=== PATIENT | male | born 1955 ===

== ENCOUNTER 2018-12-07 15:54 | Emergency (ER) | payer MEDICARE, OTHER ==
[2018-12-07 16:23] VITALS: BP 149/81; PULSE 96; RESP 18; TEMP 98.1; O2SAT 99
--- NOTE | 2018-12-07 16:46 | ED PDOC ---
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 Patient reports that just prior to arrival he was trying to help his falling out of a wheelchair when he fell forwards landing on an outstretched left hand. He states he feels as if his thumb came out of its socket and went back in, presenting with bruising, swelling, and decreased ROM. Otherwise, denies medication use, numbness, tingling, and other injury. Right hand dominant. PMD: Eli Elliott Past Medical History Reviewed: Historical Data, Nursing Documentation, Vital Signs Vital Signs: Last Vital Signs Temp 98.1 F 12/07/18 16:20 Pulse 96 H 12/07/18 16:20 Resp 18 12/07/18 16:20 BP 149/81 12/07/18 16:20 Pulse Ox 99 12/07/18 16:20 - Medical History PMH: Diabetes - Surgical History Surgical History: No Surg Hx - Family History Family History: States: Unknown Family Hx - Social History Current smoker - smoking cessation education provided: No Alcohol: None Drugs: Denies - Home Medications Home Medications: Ambulatory Orders Medication Instructions Recorded Ibuprofen [Motrin Tab] 600 mg PO Q6 PRN #20 tab 12/07/18 - Allergies Allergies/Adverse Reactions: Allergies Allergy/AdvReac Type Severity Reaction Status Date / Time No Known Allergies Allergy Verified 12/07/18 16:20 Review of Systems ROS Statement: Except As Marked, All Systems Reviewed And Found Negative Musculoskeletal: Positive for: Hand Pain (left thumb) Neurological: Negative for: Numbness (or tingling) Physical Exam - Reviewed Nursing Documentation Reviewed: Yes Vital Signs Reviewed: Yes - Physical Exam Comments: GENERAL APPEARANCE: Patient is awake, alert, oriented x 3, in no acute distress. SKIN: Warm, dry; (-) cyanosis. CHEST AND RESPIRATORY: (-) chest wall tenderness. Lungs: (-) rales, (-) rhonchi, (-) wheezes; breath sounds equal bilaterally. HEART AND CARDIOVASCULAR: (-) irregularity; (-) murmur, (-) gallop. LEFT UPPER EXTREMITY: capillary refill less than two second. Pulses 2+. (+) diffuse swelling and ecchymosis from 1st metacarpal with mild tenderness to palpation, (+) decreased ROM to left first digit but with flexion and extension intact. Neurovascular intact. Remainder of UE: (-) tenderness, (-) deformity. NEURO AND PSYCH: Mental status as above. - ECG O2 Sat by Pulse Oximetry: 99 (RA) Pulse Ox Interpretation: Normal Medical Decision Making Medical Decision Making: Time: 164 Initial Impression: left hand pain, r/o dislocation and fracture Initial Plan: --Ibuprofen 600mg PO --Left hand XR 1705 XR FINDINGS: LEFT THUMB: There is an acute nondisplaced fracture in the base of the thumb. There is diffuse bone demineralization. Remainder of the left hand (as seen on the AP view) grossly unremarkable. JOINTS: Normal. SOFT TISSUES: There is diffuse soft tissue swelling in the thumb. OTHER FINDINGS: None. IMPRESSION: Acute nondisplaced fracture in the base of the thumb with diffuse soft tissue swelling. 1730 In light of XR findings, patient to be placed in thumb spica splint and follow up with clinic / ortho. Using language line #[id number] patient was told of plan for splint, rest, and ibuprofen script upon discharge. Patient at this time said that he was also having elbow swelling, which he never mentioned previously. Upon palpation of elbow, patient does not have any tenderness, ecchymosis, or erythema and pt has FROM, denies hitting his elbow or having any pain. There is mild swelling noted, but XR is not required at this time since no bony tenderness or deformity. Patient agreeable and verbalized understanding. Return parameters discussed and stable for discharge. Thumb spica placed and checked by me, pulse +2, good color discussed results, diagnosis, treatment, return precautions and f/u with pt who is understanding, in agreement and stable for dc (language line used as above) Scribe Attestation: Documented by Cornelia Romo acting as a scribe for Kailash Hayes PA-C. Provider Scribe Attestation: All medical record entries made by the Scribe were at my direction and personally dictated by me. I have reviewed the chart and agree that the record accurately reflects my personal performance of the history, physical exam, medical decision making, and the department course for this patient. I have also personally directed, reviewed, and agree with the discharge instructions and disposition. Disposition - Clinical Impression Clinical Impression: Fracture of thumb, left, closed - Patient ED Disposition Is Patient to be Admitted: No Counseled Patient/Family Regarding: Studies Performed, Diagnosis, Need For Followup, Rx Given - Disposition Referrals: [facility] [Outside] Garret George III, MD [Staff Provider] - Disposition: Routine/Home Disposition Time: 18:04 Condition: IMPROVED Additional Instructions: Regrese a la ED para sntomas nuevos o que empeoran, fiebre> 100.4, entumecimiento u hormigueo, cambios en el color de la piel, dolor intenso. [place] un seguimiento con un ortopedista maryam se indica. Descansar, hielo y elevar. Mantenga la frula hasta que [place] un seguimiento. Mantenga la frula limpia y s eca. Barry ibuprofeno maryam se prescribe para el dolor. Cherri por dejarnos cuidar de ti hoy. Usted fue tratado por un hueso roto en [place] pulgar. La atencin mdica de emergencia que recibi hoy se dirigi a juan sntomas agudos. Si le recetaron algn medicamento, llnelo y tmelo segn las indicaciones. Los sntomas pueden tardar varios holt en resolverse. Regrese al Departamento de Emergencias si juan sntomas empeoran, no mejoran o si tiene otros problemas. Comunquese con [place] mdico dentro de 2 holt para rhoda nueva evaluacin y israel un seguimiento o llame a guillermo de los mdicos / clnicas a los que hagan sido referido y que figuran en el formulario de Informacin de visita al paciente que se incluye en [place]. Lleve todos los documentos que le entregaron al momento del [place] junto con todos los medicamentos que est tomando para [place] visita de seguimiento. Nuestro tratamiento no puede reemplazar la atencin mdica continua por parte de un proveedor de atencin primaria (PCP) fuera del departamento de emergencias. Prescriptions: Ibuprofen [Motrin Tab] 600 mg PO Q6 PRN #20 tab PRN Reason: Pain, Moderate (4-7) Instructions: Finger Fracture (DC) Forms: [facility] ([place]er) Print Language: LITHUANIAN - POA Present On Arrival: None
--- NOTE | 2018-12-07 17:09 | RAD ---
Date of service: 12/07/2018 PROCEDURE: Left Thumb radiographs. HISTORY: injury, pain, bruise COMPARISON: None. TECHNIQUE: AP radiograph of the left hand, as well as spot oblique and lateral images of thumb were obtained. 4 views obtained. FINDINGS: LEFT THUMB: There is an acute nondisplaced fracture in the base of the thumb. There is diffuse bone demineralization. Remainder of the left hand (as seen on the AP view) grossly unremarkable. JOINTS: Normal. SOFT TISSUES: There is diffuse soft tissue swelling in the thumb. OTHER FINDINGS: None. IMPRESSION: Acute nondisplaced fracture in the base of the thumb with diffuse soft tissue swelling.
== END 2018-12-07 18:15 | disposition home or self-care (01) ==
LOC: H.ER 15:54
DX: S68.012A Complete traumatic metacarpophalangeal amputation of left thumb, initial encounter (principal); W18.39XA Other fall on same level, initial encounter; Y93.F9 Activity, other caregiving; E11.9 Type 2 diabetes mellitus without complications